=== PATIENT | male | born 1980 | race Caucasian/White ===

== ENCOUNTER 2022-05-28 09:50 | Day surgery (SDC) | payer OTHER, SELFPAY ==
[2022-05-28] VITALS (15 sets, daily range): BP systolic 121–140; BP diastolic 85–109; PULSE 84–112; RESP 16; TEMP 36.9–37.1; O2SAT 91–97; BMI 39.9
[2022-05-28] MEDS: SODIUM CHLORIDE 0.9 % (FLUSH) 10 ML SYRINGE IVF (10:20)
[2022-05-28] MEDS: LACTATED RINGERS 1000 ML 1,000 ML 100 ML IV (10:20)
--- NOTE | 2022-05-28 10:27 | SUR.PREOP ---
patients home covid test negative done 05/27/22 @ 3pm.
[2022-05-28] MEDS: CEFAZOLIN 2 GM INJ IVP (10:37)
--- NOTE | 2022-05-28 11:25 | PM.GSPRC ---
Operative Note Date of procedure: 05/28/22 Type of Procedure: Open umbilical hernia repair with placement of mesh Procedure Description: After discussing the risks and benefits of the procedure, the patient signed informed consent.? The operative site was marked and the patient was brought to the operating room and placed on the operating table in supine position.? Care was taken to pad the patient's pressure points.?? The patient was then intubated by anesthesia.?? The operative site was then prepped and draped in the usual sterile fashion.? A time-out was then performed. A curvilinear incision was made at the umbilicus. Dissection was carried down into the subcutaneous tissue using cautery. The hernia sac was encountered a significant amount of preperitoneal fat was incarcerated and unable to be reduced. The hernia sac was carefully entered and the incarcerated fat resected. No evidence of any bowel incarceration or intra-abdominal contents. Dissection was taken down to the fascia, and the umbilical stock was carefully dissected off of the hernia sac. Once the hernia sac was dissected out circumferentially, it was reduced. The fascial edges were then cleared circumferentially. The hernia was 3 cm in size and so the decision was made to use a piece of mesh. A preperitoneal pocket was created using a combination of blunt dissection and cautery. Hemostasis appeared adequate. Once the posterior fascia was clear, a piece of medium Ventralex ST hernia mesh was placed in the preperitoneal space with care to ensure that it laid flat. This was secured into place using 2 0 PDS interrupted sutures. The tails were then trimmed and the fascial opening was closed with a running 0 Vicryl. Local anesthetic was injected into the fascia, skin and subcutaneous tissues. The umbilicus was reapproximated to the fascia. The skin was then closed with running absorbable suture. A sterile dressing was then applied. ? The patient was then woken and transported to the recovery area in stable condition. ? The patient tolerated the procedure well. Findings: 3 cm umbilical hernia, repaired with mesh. Anesthesia: GETA Surgeon: Yuko Hurt MD Estimated blood loss (mL): 5 Condition: stable Disposition: same day
--- NOTE | 2022-05-28 11:42 | W.ANESCHARGE ---
Anesthesia Charges Start Date/Time Anesthesia Start Date: 05/28/22 Anesthesia Start Time: 10:27 Stop Date/Time Anesthesia Stop Date: 05/28/22 Anesthesia Stop Time: 11:42 Summary Emergency: No
[2022-05-28] MEDS: fentaNYL 100 MCG/2 ML inj 50 MCG IVP ×2 (12:09→12:19)
--- NOTE | 2022-05-28 14:22 | W.ANESCHARGE ---
Anesthesia Charges Start Date/Time Anesthesia Start Date: 05/28/22 Anesthesia Start Time: 10:27 Stop Date/Time Anesthesia Stop Date: 05/28/22 Anesthesia Stop Time: 11:42 Summary Emergency: No
== END 2022-05-28 13:20 | disposition home or self-care (01) ==
PROVIDERS: PCP Family Medicine; Visit Provider Surgery
PROC: (CPT 49587; principal; 2022-05-28 10:45)
DX: K42.0 Umbilical hernia with obstruction, without gangrene (principal)
CPT/HCPCS: 49587; 00830; C1781; J0330; J0690; J1100; J1885; J2250; J2370; J2405; J2704; J3010; J7120